=== PATIENT | male | born 1940 | race Caucasian/White ===

== ENCOUNTER 2022-05-13 17:38 | Inpatient (IN) | payer OTHER ==
[~2022-05-13] VITALS: Ht 160 cm; Wt 60.8 kg
[2022-05-13 17:44] VITALS: BP_SYST 107
[2022-05-13 18:30] LABS: BASOPHILS % (AUTO) 0.7 % (0.0-2.0); EOSINOPHILS # (AUTO) 0.1 K/uL (0.0-0.4); EOSINOPHILS % (AUTO) 2.3 % (0.0-4.0); HEMATOCRIT 34.2 % (36-54); LYMPHOCYTES # (AUTO) 1.2 K/uL (1.0-5.5); LYMPHOCYTES % (AUTO) 24.3 % (20.5-51.5); MEAN CORPUSCULAR HEMOGLOBIN 31 pg (27-31); MEAN CORPUSCULAR HGB CONC 35 % (32-36); MEAN CORPUSCULAR VOLUME 89 fL (79.0-98.0); MONOCYTES # (AUTO) 0.6 K/uL (0.0-1.0); MONOCYTES % (AUTO) 11.2 % (1.7-9.3); NEUTROPHILS # (AUTO) 3.1 K/uL (1.8-7.7); NEUTROPHILS % (AUTO) 61.5 % (40.0-70.0); PLATELET COUNT (AUTO) 277 K/uL (130-430); RED BLOOD CELL COUNT(AUTO) 3.84 MIL/uL (4.2-6.2); RED CELL DISTRIBUTION WIDTH 13.6 % (9.0-15.0); WHITE BLOOD COUNT (AUTO) 5.1 K/uL (4.8-10.8)
[2022-05-13 18:45] LABS: ANION GAP 9 (5-15); CALCIUM 8.7 mg/dL (8.4-11.0); CHLORIDE 92 mmol/L (98-107); CREATININE 0.88 mg/dL (0.55-1.30); GLUCOSE 79 mg/dL (70-99); UREA NITROGEN, BLOOD 14 mg/dL (8-21)
[2022-05-13 18:50] LABS: INR 1.1 (0.80-1.20); PROTHROMBIN TIME 11.6 SECS (9.5-12.5)
[2022-05-13 18:59] LABS: ALANINE AMINOTRANSFERASE 17 U/L (12-78); ALBUMIN 3.4 g/dL (3.4-4.8); ASPARTATE AMINOTRANSFERASE 20 U/L (10-37); FREE T4 (FREE THYROXINE) 1.2 ng/dL (0.6-1.6); TOTAL BILIRUBIN 0.9 mg/dL (0.0-1.0)
[2022-05-13] MEDS ORDERED: NACL 0.9% 1,000 ML IV ONE (19:30)
[2022-05-13 19:53] LABS: ACETONE, SERUM POSITIVE (NEGATIVE)
[2022-05-13 21:57] VITALS: BP_SYST 126
[2022-05-13] MEDS: D5NS 1,000 ML IV SCH (22:32)
[2022-05-14 08:00] VITALS: BP_SYST 133
[2022-05-14 09:27] LABS: BILIRUBIN,URINE NEGATIVE (NEGATIVE); BLOOD, URINE 3+ (NEGATIVE); CLARITY/URINE CLEAR (CLEAR); COLOR,URINE YELLOW (YELLOW); GLUCOSE,URINE NEGATIVE (NEGATIVE); KETONES,URINE 1+ (NEGATIVE); LEUKOCYTE ESTERASE ,URINE NEGATIVE (NEGATIVE); NITRITE, URINE NEGATIVE (NEGATIVE); PROTEIN URINE NEGATIVE (NEGATIVE)
[2022-05-14 09:44] LABS: BASOPHILS % (AUTO) 0.5 % (0.0-2.0); EOSINOPHILS # (AUTO) 0.1 K/uL (0.0-0.4); EOSINOPHILS % (AUTO) 2.2 % (0.0-4.0); HEMATOCRIT 34.8 % (36-54); LYMPHOCYTES % (AUTO) 17.6 % (20.5-51.5); MEAN CORPUSCULAR HEMOGLOBIN 31 pg (27-31); MEAN CORPUSCULAR HGB CONC 34 % (32-36); MEAN CORPUSCULAR VOLUME 89 fL (79.0-98.0); MONOCYTES # (AUTO) 0.5 K/uL (0.0-1.0); MONOCYTES % (AUTO) 9.6 % (1.7-9.3); NEUTROPHILS % (AUTO) 70.1 % (40.0-70.0); PLATELET COUNT (AUTO) 276 K/uL (130-430); RED BLOOD CELL COUNT(AUTO) 3.89 MIL/uL (4.2-6.2); RED CELL DISTRIBUTION WIDTH 13.8 % (9.0-15.0); WHITE BLOOD COUNT (AUTO) 5.7 K/uL (4.8-10.8)
[2022-05-14 09:45] LABS: ANION GAP 5 (5-15); CALCIUM 8.5 mg/dL (8.4-11.0); CHLORIDE 97 mmol/L (98-107); CREATININE 0.73 mg/dL (0.55-1.30); GLUCOSE 109 mg/dL (70-99); UREA NITROGEN, BLOOD 9 mg/dL (8-21)
[2022-05-14 09:54] LABS: ALANINE AMINOTRANSFERASE 14 U/L (12-78); ALBUMIN 3.1 g/dL (3.4-4.8); ASPARTATE AMINOTRANSFERASE 21 U/L (10-37); CHOLESTEROL 166 mg/dL (<200); HDL CHOLESTEROL 72 mg/dL (>45); PHOSPHORUS 3.6 mg/dL (2.7-4.5); TOTAL BILIRUBIN 0.8 mg/dL (0.0-1.0); TRIGLYCERIDES 67 mg/dL (30-150)
[2022-05-14 10:11] LABS: BACTERIA,URINE None Seen /HPF (None Seen); RBC,URINE 50-80 /HPF (0-3); WBC,URINE 0-3 /HPF (0-3)
[2022-05-14 12:00] VITALS: BP_SYST 131
[2022-05-14 15:58] LABS: ANION GAP 6 (5-15); CALCIUM 8.1 mg/dL (8.4-11.0); CHLORIDE 94 mmol/L (98-107); CREATININE 0.83 mg/dL (0.55-1.30); GLUCOSE 113 mg/dL (70-99); UREA NITROGEN, BLOOD 7 mg/dL (8-21)
[2022-05-14 16:00] VITALS: BP_SYST 131
[2022-05-14 20:00] VITALS: BP_SYST 110
[2022-05-14] MEDS: D5NS 1,000 ML IV SCH (22:28)
[2022-05-15 00:20] VITALS: BP_SYST 140
[2022-05-15 07:17] LABS: ANION GAP 5 (5-15); CALCIUM 8.4 mg/dL (8.4-11.0); CHLORIDE 95 mmol/L (98-107); CREATININE 0.76 mg/dL (0.55-1.30); GLUCOSE 108 mg/dL (70-99); UREA NITROGEN, BLOOD 6 mg/dL (8-21)
[2022-05-15] MEDS: D5NS 1,000 ML IV SCH ×2 (09:11→11:45)
[2022-05-15] MEDS ORDERED: SODIUM CHLORIDE 3% *HI-ALERT* 500 ML IV PRN (10:45)
[2022-05-15] MEDS ORDERED: SODIUM CHLORIDE 3% *HI-ALERT* 250 ML IV ONE (12:00)
[2022-05-15 13:01] VITALS: BP_SYST 139
[2022-05-15 17:30] VITALS: BP_SYST 129
[2022-05-15 20:00] VITALS: BP_SYST 13; BP_SYST 134
[2022-05-15] MEDS: FUROSEMIDE 20 MG/2 ML VIAL IVP SCH (23:08)
[2022-05-16] VITALS: BP_SYST 123
[2022-05-16] MEDS: D5NS 1,000 ML IV SCH ×3 (01:00→17:45)
[2022-05-16 07:17] LABS: BASOPHILS % (AUTO) 0.4 % (0.0-2.0); EOSINOPHILS # (AUTO) 0.2 K/uL (0.0-0.4); EOSINOPHILS % (AUTO) 3.7 % (0.0-4.0); HEMATOCRIT 35.6 % (36-54); HEMOGLOBIN 12.3 g/dL (14.0-18.0); LYMPHOCYTES # (AUTO) 1.3 K/uL (1.0-5.5); LYMPHOCYTES % (AUTO) 21.2 % (20.5-51.5); MEAN CORPUSCULAR HEMOGLOBIN 31 pg (27-31); MEAN CORPUSCULAR HGB CONC 34 % (32-36); MEAN CORPUSCULAR VOLUME 90 fL (79.0-98.0); MONOCYTES # (AUTO) 0.5 K/uL (0.0-1.0); MONOCYTES % (AUTO) 8.2 % (1.7-9.3); NEUTROPHILS # (AUTO) 3.9 K/uL (1.8-7.7); NEUTROPHILS % (AUTO) 66.5 % (40.0-70.0); PLATELET COUNT (AUTO) 275 K/uL (130-430); RED BLOOD CELL COUNT(AUTO) 3.97 MIL/uL (4.2-6.2); RED CELL DISTRIBUTION WIDTH 13.8 % (9.0-15.0); WHITE BLOOD COUNT (AUTO) 5.9 K/uL (4.8-10.8)
[2022-05-16 07:40] VITALS: BP_SYST 116
[2022-05-16 07:41] LABS: ANION GAP 7 (5-15); CALCIUM 8.6 mg/dL (8.4-11.0); CHLORIDE 95 mmol/L (98-107); CREATININE 0.78 mg/dL (0.55-1.30); GLUCOSE 96 mg/dL (70-99); UREA NITROGEN, BLOOD 5 mg/dL (8-21)
[2022-05-16] MEDS: FUROSEMIDE 20 MG/2 ML VIAL IVP SCH ×2 (11:49→22:52)
[2022-05-16] MEDS ORDERED: PANTOPRAZOLE SODIUM 40 MG TAB PO ONE (13:15)
[2022-05-16] MEDS ORDERED: MEGESTROL ACETATE 400 MG/10 ML UDC PO ONE (13:15)
[2022-05-16] MEDS ORDERED: POLYETHYLENE GLYCOL 3350, 17 GM/ POWD.PACK PO ONE (14:30)
[2022-05-16 14:46] LABS: ANION GAP 8 (5-15); CALCIUM 8.4 mg/dL (8.4-11.0); CHLORIDE 95 mmol/L (98-107); CREATININE 0.85 mg/dL (0.55-1.30); GLUCOSE 108 mg/dL (70-99); UREA NITROGEN, BLOOD 7 mg/dL (8-21)
[2022-05-16 16:12] VITALS: BP_SYST 138
[2022-05-16] MEDS: LEVOFLOXACIN 250 MG/D5W 50 ML IV SCH (18:42)
[2022-05-16 20:00] VITALS: BP_SYST 117
[2022-05-16] MEDS: MEGESTROL ACETATE 400 MG/10 ML UDC PO SCH (21:06)
[2022-05-17] VITALS: BP_SYST 93
[2022-05-17] MEDS: D5NS 1,000 ML IV SCH ×3 (03:57→21:41)
[2022-05-17 06:47] LABS: BASOPHILS % (AUTO) 0.5 % (0.0-2.0); EOSINOPHILS # (AUTO) 0.1 K/uL (0.0-0.4); HEMATOCRIT 32.6 % (36-54); HEMOGLOBIN 11.2 g/dL (14.0-18.0); LYMPHOCYTES # (AUTO) 1.6 K/uL (1.0-5.5); LYMPHOCYTES % (AUTO) 25.3 % (20.5-51.5); MEAN CORPUSCULAR HEMOGLOBIN 31 pg (27-31); MEAN CORPUSCULAR HGB CONC 34 % (32-36); MEAN CORPUSCULAR VOLUME 90 fL (79.0-98.0); MONOCYTES # (AUTO) 0.5 K/uL (0.0-1.0); MONOCYTES % (AUTO) 8.3 % (1.7-9.3); NEUTROPHILS # (AUTO) 4.1 K/uL (1.8-7.7); NEUTROPHILS % (AUTO) 63.9 % (40.0-70.0); PLATELET COUNT (AUTO) 266 K/uL (130-430); RED BLOOD CELL COUNT(AUTO) 3.63 MIL/uL (4.2-6.2); RED CELL DISTRIBUTION WIDTH 13.7 % (9.0-15.0); WHITE BLOOD COUNT (AUTO) 6.3 K/uL (4.8-10.8)
[2022-05-17 07:14] LABS: ANION GAP 6 (5-15); CALCIUM 8.3 mg/dL (8.4-11.0); CHLORIDE 97 mmol/L (98-107); CREATININE 0.81 mg/dL (0.55-1.30); GLUCOSE 105 mg/dL (70-99); UREA NITROGEN, BLOOD 7 mg/dL (8-21)
[2022-05-17 07:40] VITALS: BP_SYST 100
[2022-05-17] MEDS ORDERED: DIATR MEGLU/DIATRIZ SOD 30 ML SOLUTION PO ONE (08:25)
[2022-05-17] MEDS: FUROSEMIDE 20 MG/2 ML VIAL IVP SCH (08:29)
[2022-05-17 08:32] VITALS: BP_SYST 108
[2022-05-17] MEDS: PANTOPRAZOLE SODIUM 40 MG TAB PO SCH (08:40)
[2022-05-17] MEDS: MEGESTROL ACETATE 400 MG/10 ML UDC PO SCH ×2 (08:40→21:37)
[2022-05-17] MEDS ORDERED: POTASSIUM CHLORIDE 20 MEQ TAB.PRT.SR PO ONE (11:15)
[2022-05-17 11:32] LABS: BILIRUBIN,URINE NEGATIVE (NEGATIVE); BLOOD, URINE 2+ (NEGATIVE); CLARITY/URINE CLEAR (CLEAR); COLOR,URINE YELLOW (YELLOW); GLUCOSE,URINE NEGATIVE (NEGATIVE); KETONES,URINE NEGATIVE (NEGATIVE); LEUKOCYTE ESTERASE ,URINE NEGATIVE (NEGATIVE); NITRITE, URINE NEGATIVE (NEGATIVE); PH,URINE 6.5 (5.0-8.0); PROTEIN URINE NEGATIVE (NEGATIVE); UROBILINOGEN,URINE 0.2 (0.2-1.0)
[2022-05-17 11:40] VITALS: BP_SYST 106
[2022-05-17 12:06] LABS: BACTERIA,URINE RARE /HPF (None Seen); MUCUS,URINE 1+ /LPF (None Seen); WBC,URINE 0-3 /HPF (0-3)
[2022-05-17] MEDS ORDERED: FUROSEMIDE 20 MG/2 ML VIAL IVP ONE (12:30)
[2022-05-17 14:10] LABS: BASOPHILS % (AUTO) 0.5 % (0.0-2.0); EOSINOPHILS # (AUTO) 0.1 K/uL (0.0-0.4); EOSINOPHILS % (AUTO) 1.8 % (0.0-4.0); HEMATOCRIT 36.2 % (36-54); HEMOGLOBIN 12.3 g/dL (14.0-18.0); LYMPHOCYTES % (AUTO) 15.9 % (20.5-51.5); MEAN CORPUSCULAR HEMOGLOBIN 31 pg (27-31); MEAN CORPUSCULAR HGB CONC 34 % (32-36); MEAN CORPUSCULAR VOLUME 90 fL (79.0-98.0); MONOCYTES # (AUTO) 0.4 K/uL (0.0-1.0); MONOCYTES % (AUTO) 6.7 % (1.7-9.3); NEUTROPHILS # (AUTO) 4.8 K/uL (1.8-7.7); NEUTROPHILS % (AUTO) 75.1 % (40.0-70.0); PLATELET COUNT (AUTO) 278 K/uL (130-430); RED CELL DISTRIBUTION WIDTH 13.7 % (9.0-15.0); WHITE BLOOD COUNT (AUTO) 6.4 K/uL (4.8-10.8)
[2022-05-17] MEDS: LEVOFLOXACIN 250 MG/D5W 50 ML IV SCH (14:38)
[2022-05-17 16:31] VITALS: BP_SYST 127
[2022-05-17 20:00] VITALS: BP_SYST 93
[2022-05-18] VITALS: BP_SYST 104
[2022-05-18 07:40] VITALS: BP_SYST 116
[2022-05-18] MEDS ORDERED: FUROSEMIDE 20 MG/2 ML VIAL IVP SCH (09:00)
[2022-05-18] MEDS ORDERED: HYDROCORTISONE ACETATE 1 SUPP (ANUSOL HC) RC SCH (09:00)
[2022-05-18] MEDS: MEGESTROL ACETATE 400 MG/10 ML UDC PO SCH (09:06)
[2022-05-18] MEDS: PANTOPRAZOLE SODIUM 40 MG TAB PO SCH (09:06)
[2022-05-18] MEDS: D5NS 1,000 ML IV SCH (09:45)
[2022-05-18 11:40] VITALS: BP_SYST 115
[2022-05-18] MEDS ORDERED: FURO20TA4 PO (14:09)
[2022-05-18] MEDS ORDERED: MEGE400O4 PO (14:09)
[2022-05-18] MEDS ORDERED: ANURH RC (14:09)
[2022-05-18] MEDS: LEVOFLOXACIN 250 MG/D5W 50 ML IV SCH (14:19)
[2022-05-18 16:09] VITALS: BP_SYST 112
[2022-05-20 16:06] LABS: % FREE PSA 9.4 % (.); FREE PSA 0.17 ng/mL; PROSTATE SPECIFIC AG TOTAL 1.8 ng/mL (0.0-4.0)
== END 2022-05-18 17:45 | disposition home or self-care (01) | DRG 641 ==
LOC: SED 17:38 → STU 19:44
PROVIDERS: ADMIT Specialist; ATTEND Specialist
PROC: 0T9B70Z Drainage of Bladder with Drainage Device, Via Natural or Artificial Opening (ICD-10-PCS; principal; 2022-05-14)
DX: E87.1 Hypo-osmolality and hyponatremia (principal); C64.2 Malignant neoplasm of left kidney, except renal pelvis; E86.0 Dehydration; N31.2 Flaccid neuropathic bladder, not elsewhere classified; D64.9 Anemia, unspecified; Z20.822 Contact with and (suspected) exposure to COVID-19; Z85.528 Personal history of other malignant neoplasm of kidney; Z90.5 Acquired absence of kidney; R31.9 Hematuria, unspecified; N39.498 Other specified urinary incontinence
CPT/HCPCS: 36415; 70450-TC; 71045; 72110; 76376; 80048; 80053; 80061; 81000; 82009; 82550; 83605; 83735; 84100; 84153; 84439; 84443; 84484; 85025; 85610-TC; 85730-TC; 93005; 97110-GP; 97116-GP; 97530-GP; 99285; G0378; J1940; J1956; J3490; Q9964; Q9967

== ENCOUNTER 2022-05-21 14:33 | Inpatient (IN) | payer OTHER ==
[~2022-05-21] VITALS: Ht 160 cm; Wt 59.9 kg
[~2022-05-21 14:33] MED LIST: ANURH RC; FURO20TA4 PO; MEGE400O4 PO
[2022-05-21 14:48] VITALS: BP_SYST 153
[2022-05-21] MEDS ORDERED: NACL 0.9% 1,000 ML IV ONE (15:00)
--- NOTE | 2022-05-21 15:16 | NUR ---
XRAY AT BEDSIDE
--- NOTE | 2022-05-21 15:30 | NUR ---
PT PRESENTS TO ED WITH REPORT OF HEMATURIA AND DYSURIA X 3 DAYS. PT WAS DISCHARGED FROM [facility] 05/17 AND HAD F/C PLACED ON 05/16, ONCE PT WAS HOME, PAIN STARTED. YELLOW CLEAR URINE NOTED IN F/C DRAINAGE BAG. PT IS AWAKE A/O 4 AND VERBALLY RESPONSIVE. NO ACUTE DISTRESS NOTED. SPEAKS CLEAR AND FULL SENTENCES. IV INITIATED TO RIGHT AC, TOLERATED WELL, POSITIVE BLOOD RETURN. NO REDNESS OR SWELLING. OBTAINED LAB SPECIMENS FROM IV SITE. DAUGHTER AT BEDSIDE
[2022-05-21 15:40] LABS: BASOPHILS % (AUTO) 0.5 % (0.0-2.0); EOSINOPHILS # (AUTO) 0.1 K/uL (0.0-0.4); EOSINOPHILS % (AUTO) 1.9 % (0.0-4.0); HEMATOCRIT 33.9 % (36-54); HEMOGLOBIN 11.8 g/dL (14.0-18.0); LYMPHOCYTES # (AUTO) 1.2 K/uL (1.0-5.5); LYMPHOCYTES % (AUTO) 20.7 % (20.5-51.5); MEAN CORPUSCULAR HEMOGLOBIN 31 pg (27-31); MEAN CORPUSCULAR HGB CONC 35 % (32-36); MEAN CORPUSCULAR VOLUME 90 fL (79.0-98.0); MONOCYTES # (AUTO) 0.5 K/uL (0.0-1.0); NEUTROPHILS # (AUTO) 3.9 K/uL (1.8-7.7); NEUTROPHILS % (AUTO) 68.9 % (40.0-70.0); PLATELET COUNT (AUTO) 273 K/uL (130-430); RED BLOOD CELL COUNT(AUTO) 3.77 MIL/uL (4.2-6.2); WHITE BLOOD COUNT (AUTO) 5.7 K/uL (4.8-10.8)
[2022-05-21 15:50] LABS: ANION GAP 7 (5-15); CHLORIDE 94 mmol/L (98-107); GLUCOSE 95 mg/dL (70-99); UREA NITROGEN, BLOOD 17 mg/dL (8-21)
[2022-05-21 15:51] LABS: INR 1.1 (0.80-1.20); PROTHROMBIN TIME 11.4 SECS (9.5-12.5)
[2022-05-21 15:57] LABS: ALANINE AMINOTRANSFERASE 16 U/L (12-78); ALBUMIN 3.3 g/dL (3.4-4.8); ASPARTATE AMINOTRANSFERASE 22 U/L (10-37); TOTAL BILIRUBIN 0.7 mg/dL (0.0-1.0)
[2022-05-21] MEDS ORDERED: FURO-150 PO (16:16)
[2022-05-21 16:21] LABS: CLARITY/URINE SLIGHTLY CLOUDY (CLEAR); COLOR,URINE YELLOW (YELLOW); GLUCOSE,URINE 0 (NEGATIVE); KETONES,URINE TRACE (NEGATIVE); PH,URINE 6.5 (5.0-8.0); PROTEIN URINE 2+ (NEGATIVE)
[2022-05-21 16:22] LABS: BILIRUBIN,URINE NEGATIVE (NEGATIVE); BLOOD, URINE 3+ (NEGATIVE); LEUKOCYTE ESTERASE ,URINE 1+ (NEGATIVE); NITRITE, URINE NEGATIVE (NEGATIVE)
[2022-05-21 16:30] LABS: RBC,URINE >100 /HPF (0-3)
[2022-05-21 16:31] LABS: BACTERIA,URINE FEW /HPF (None Seen); MUCUS,URINE 3+ /LPF (None Seen)
--- NOTE | 2022-05-21 16:41 | NUR ---
IRRIGATED F/C PER SAMSON ORDERS WITH 120 ML NS
--- NOTE | 2022-05-21 16:42 | NUR ---
Admit bed requested Patient will be admitted to care of Dr Gordon. Admitted to Medsurg unit. Diagnosis Hyponatremia Inpatient (Yes or No) Yes Observation (Yes or No) No Orientation concerns or request close to nursing station (Yes or No) No Covid Status pending On vent or bipap N/A Isolation requirements N/A Needs a sitter N/A From Home (Yes or if No enter name of facility) Yes Requires Dialysis (Yes or No) No Med Rec Completed (Yes of No) Yes
[2022-05-21] MEDS ORDERED: cefTRIAXone 1 GM in D5W 50 ML IV ONE (16:45)
[2022-05-21] MEDS ORDERED: cefTRIAXone 1 GM VIAL ONE (16:45)
--- NOTE | 2022-05-21 17:00 | NUR ---
PT AWAKE IN [facility], NO ACUTE DISTRESS NOTED. BREATHING EVEN AND UNLABORED. DENIES ANY NEEDS AT THIS TIME. NO CHANGES NOTED. SAFETY MEASURES IN PLACE.
[2022-05-21] MEDS: NACL 0.9% 1,000 ML IV SCH (17:46)
--- NOTE | 2022-05-21 18:36 | NUR ---
PT AWAKE, A/O X4 AND VERBALLY RESPONSIVE. NO ACUTE DISTRESS NOTED. BREATHING EVEN AND UNLABORED. PT DENIES ANY PAIN OR DISCOMFORT AT THIS TIME. F/C INTACT, CLEAR AND YELLOW URINE DRAINING INTO DRAINAGE BAG. SAFETY MEASURS IN PLACE. Addendum: 05/21/22 at 1837 by [email or web address] NO CHANGES NOTED AT THIS TIME
--- NOTE | 2022-05-21 19:21 | NUR ---
REPORT GIVEN TO DAYNE SUAZO TO CONTINUE CARE OF PT
--- NOTE | 2022-05-22 00:28 | NUR ---
Patient will be admitted to care of Dr. Gordon. Admitted to MS unit. Will go to room 107B. Belongings list completed. Complete and up to date summary report printed. SBAR report to be given at bedside to GABRIELE Kim with opportunity for questions.
--- NOTE | 2022-05-22 00:35 | NUR ---
ADMISSION NOTE Received patient from ER via gurney. Patient admitted with diagnosis of Hyponatremia . Patient is awake, alert, oriented X 4. Patient oriented to hospital room, call light, toileting, pain management and safety-teach back done. Patient informed that I will be his nurse and that their room number is 107B. Personal belongings checked and Belongings List documented. Call light within reach.
[2022-05-22 00:38] VITALS: BP_SYST 119
--- NOTE | 2022-05-22 04:18 | NUR ---
ROUNDS PATIENT ASLEEP, VITALS STABLE, NO SIGNS OF ANY PAIN AND DISCOMFORT NOTED. WILL CONTINUE TO MONITOR.
[2022-05-22] MEDS ORDERED: cefTRIAXone 1 GM VIAL IM SCH (09:00)
[2022-05-22 09:01] VITALS: BP_SYST 144
[2022-05-22] MEDS: cefTRIAXone 1 GM in D5W 50 ML IV SCH (12:15)
[2022-05-22 12:30] VITALS: BP_SYST 128
[2022-05-22] MEDS: NACL 0.9% 1,000 ML IV SCH (14:35)
[2022-05-22 15:50] VITALS: BP_SYST 123
--- NOTE | 2022-05-22 17:58 | NUR ---
CONSULTATION: REASON FOR CONSULT: ONC F/U H/O RCC WITH POSS METS CONSULTING PHYSICIAN: DIEGO ORDERED BY: DANE SPOKE WITH LORENZO [phone]
[2022-05-22 20:00] VITALS: BP_SYST 133
[2022-05-23] MEDS ORDERED: ANUSOL 1 EA SUPP.RECT (PREPARATION H) RC PRN (00:30)
[2022-05-23] MEDS ORDERED: PHENYLEPH/MINERAL OIL/PETROLAT 57 GM OINT.APPL TP PRN (00:30)
[2022-05-23] MEDS ORDERED: ACETAMINOPHEN 325 MG TABLET PO PRN (00:30)
[2022-05-23 00:45] VITALS: BP_SYST 132
[2022-05-23] MEDS: ACETAMINOPHEN 500 MG TABLET PO PRN ×2 (00:57→20:58)
[2022-05-23 05:15] LABS: BASOPHILS % (AUTO) 0.6 % (0.0-2.0); EOSINOPHILS # (AUTO) 0.2 K/uL (0.0-0.4); EOSINOPHILS % (AUTO) 2.4 % (0.0-4.0); HEMATOCRIT 32.2 % (36-54); HEMOGLOBIN 11.1 g/dL (14.0-18.0); LYMPHOCYTES # (AUTO) 1.6 K/uL (1.0-5.5); MEAN CORPUSCULAR HEMOGLOBIN 31 pg (27-31); MEAN CORPUSCULAR HGB CONC 34 % (32-36); MEAN CORPUSCULAR VOLUME 90 fL (79.0-98.0); MONOCYTES # (AUTO) 0.6 K/uL (0.0-1.0); MONOCYTES % (AUTO) 9.4 % (1.7-9.3); NEUTROPHILS # (AUTO) 4.1 K/uL (1.8-7.7); NEUTROPHILS % (AUTO) 62.6 % (40.0-70.0); PLATELET COUNT (AUTO) 255 K/uL (130-430); RED BLOOD CELL COUNT(AUTO) 3.56 MIL/uL (4.2-6.2); RED CELL DISTRIBUTION WIDTH 13.5 % (9.0-15.0); WHITE BLOOD COUNT (AUTO) 6.5 K/uL (4.8-10.8)
[2022-05-23] MEDS ORDERED: IPRATROPIUM/ALBUTEROL SULFATE 3 ML AMPUL.NEB (DUONEB) INH PRN (05:30)
[2022-05-23 06:18] VITALS: BP_SYST 132
[2022-05-23 06:23] LABS: ALANINE AMINOTRANSFERASE 8 U/L (12-78); ALBUMIN 2.8 g/dL (3.4-4.8); ANION GAP 10 (5-15); ASPARTATE AMINOTRANSFERASE 18 U/L (10-37); CALCIUM 7.9 mg/dL (8.4-11.0); CHLORIDE 95 mmol/L (98-107); CREATININE 0.84 mg/dL (0.55-1.30); GLUCOSE 90 mg/dL (70-99); TOTAL BILIRUBIN 0.4 mg/dL (0.0-1.0); UREA NITROGEN, BLOOD 10 mg/dL (8-21)
[2022-05-23 06:24] LABS: FREE T4 (FREE THYROXINE) 0.9 ng/dL (0.6-1.6); PHOSPHORUS 3.3 mg/dL (2.7-4.5); THYROID STIMULATING HORMONE 3.65 uIu/mL (0.34-4.82)
--- NOTE | 2022-05-23 06:26 | NUR ---
SHIFT NOTES: Patient was received from AM shift during change of shift. Patient is AA&Ox4 able to make needs known, with call light within reach, denies any pain or distress at this time. Chest rise is even and unlabored on RA. PIV noted at RAC with NS running at 50ml/hr as ordered. FC cath noted, hanging by gravity, draining yellow urine. Patient is noted stable at this time and safety measures are in place as per protocol. Will monitor. 0000: Dr. VELA was called and new orders were received. Patient reported a GALINDO and discomfort due hemorrhoids. New orders were received for PRN pain relief and Hemorrhoid relief. Orders noted and carried out. 0200: Patient reports pain relief. UA order noted. 0500: UA collected. Patient is noted to be resting no s/s of distress at this time.
[2022-05-23 08:21] VITALS: BP_SYST 133
[2022-05-23] MEDS: NACL 0.9% 1,000 ML IV SCH (09:12)
[2022-05-23] MEDS: HEPARIN SODIUM,PORCINE 5,000 UNITS/ML VIAL SUBCUT SCH (09:13)
[2022-05-23 11:27] VITALS: BP_SYST 93
[2022-05-23] MEDS: cefTRIAXone 1 GM in D5W 50 ML IV SCH (11:58)
[2022-05-23 15:30] VITALS: BP_SYST 121
[2022-05-23] MEDS ORDERED: COMMUNICATION ORDER XX ONE (17:00)
[2022-05-23] MEDS ORDERED: HYDROCORTISONE ACETATE 1 SUPP (ANUSOL HC) RC ONE (17:30)
[2022-05-23] MEDS ORDERED: MEGESTROL ACETATE 400 MG/10 ML UDC PO ONE (17:30)
[2022-05-23] MEDS ORDERED: FUROSEMIDE 20 MG TABLET PO ONE (17:30)
[2022-05-23 20:00] VITALS: BP_SYST 113
[2022-05-23] MEDS: MEGESTROL ACETATE 400 MG/10 ML UDC PO SCH (20:57)
[2022-05-23] MEDS: SODIUM CHLORIDE 500 MG TABLET PO SCH (20:57)
[2022-05-23] MEDS: TEMAZEPAM 7.5 MG CAPSULE PO PRN (20:58)
[2022-05-24 00:20] VITALS: BP_SYST 113
[2022-05-24] MEDS: NACL 0.9% 1,000 ML IV SCH (05:00)
[2022-05-24 05:48] LABS: BASOPHILS % (AUTO) 0.8 % (0.0-2.0); EOSINOPHILS # (AUTO) 0.1 K/uL (0.0-0.4); EOSINOPHILS % (AUTO) 1.7 % (0.0-4.0); HEMATOCRIT 33.3 % (36-54); HEMOGLOBIN 11.3 g/dL (14.0-18.0); LYMPHOCYTES # (AUTO) 1.2 K/uL (1.0-5.5); LYMPHOCYTES % (AUTO) 28.2 % (20.5-51.5); MEAN CORPUSCULAR HEMOGLOBIN 31 pg (27-31); MEAN CORPUSCULAR HGB CONC 34 % (32-36); MEAN CORPUSCULAR VOLUME 90 fL (79.0-98.0); MONOCYTES # (AUTO) 0.4 K/uL (0.0-1.0); MONOCYTES % (AUTO) 9.2 % (1.7-9.3); NEUTROPHILS # (AUTO) 2.6 K/uL (1.8-7.7); NEUTROPHILS % (AUTO) 60.1 % (40.0-70.0); PLATELET COUNT (AUTO) 255 K/uL (130-430); RED BLOOD CELL COUNT(AUTO) 3.69 MIL/uL (4.2-6.2); RED CELL DISTRIBUTION WIDTH 13.4 % (9.0-15.0); WHITE BLOOD COUNT (AUTO) 4.3 K/uL (4.8-10.8)
[2022-05-24 06:44] LABS: ALANINE AMINOTRANSFERASE 12 U/L (12-78); ALBUMIN 2.8 g/dL (3.4-4.8); ANION GAP 8 (5-15); ASPARTATE AMINOTRANSFERASE 18 U/L (10-37); CHLORIDE 97 mmol/L (98-107); CREATININE 0.83 mg/dL (0.55-1.30); FREE T4 (FREE THYROXINE) 0.9 ng/dL (0.6-1.6); GLUCOSE 97 mg/dL (70-99); THYROID STIMULATING HORMONE 3.97 uIu/mL (0.34-4.82); TOTAL BILIRUBIN 0.3 mg/dL (0.0-1.0); UREA NITROGEN, BLOOD 9 mg/dL (8-21)
--- NOTE | 2022-05-24 07:30 | NUR ---
MORNING ROUNDS: PATIENT AWAKE DURING ROUNDS. IV FLUIDS RUNNING AT RIGHT AC INTACT. CALL LIGHT WITH IN REACH. BED LOCKED AT LOWEST POSITION. NO DISTRESS. MAINTAINED NPO ORDERED FOR BIOPSY.
[2022-05-24 08:00] VITALS: BP_SYST 126
--- NOTE | 2022-05-24 10:50 | NUR ---
Construction Economist: Spoke with Komal ,Us guided Liver biopsy not able to do it per radiologist due to lesions too deep. Rn will paged Wind Turbine Mechanical Engineer.
--- NOTE | 2022-05-24 10:53 | NUR ---
Hematology Paged: Called Dr. Smith's exchange and left message c/o Casi.
[2022-05-24 11:07] LABS: CORTISOL (SERUM) 3.4 ug/dL (6.2-19.4)
[2022-05-24] MEDS ORDERED: fentaNYL CITRATE/PF 100 MCG/2 ML AMP ONE (11:42)
[2022-05-24] MEDS ORDERED: MIDAZOLAM HCL 5 MG/5 ML VIAL ONE (11:42)
--- NOTE | 2022-05-24 11:45 | NUR ---
pawel/hospitalist: Dr Arriaza vocational rehab consultant for Dr Gordon spoke with Dr Smith regarding biopsy can not be done per radiologist.
[2022-05-24 12:00] VITALS: BP_SYST 145
[2022-05-24] MEDS: MEGESTROL ACETATE 400 MG/10 ML UDC PO SCH ×2 (12:04→21:32)
[2022-05-24] MEDS: HYDROCORTISONE ACETATE 1 SUPP (ANUSOL HC) RC SCH (12:04)
[2022-05-24] MEDS: HEPARIN SODIUM,PORCINE 5,000 UNITS/ML VIAL SUBCUT SCH (12:06)
[2022-05-24] MEDS: SODIUM CHLORIDE 500 MG TABLET PO SCH ×3 (12:08→21:30)
[2022-05-24] MEDS: FUROSEMIDE 20 MG TABLET PO SCH (12:09)
--- NOTE | 2022-05-24 15:39 | NUR ---
Dietitian Recommendations * Continue regular diet * Continue megace * Kitchen- send coffee in AM and juice in PM GS, MPH, RD Please refer to RD Assessment for further details. Thanks! Addendum: 05/24/22 at [address] Amended: Links added.
[2022-05-24 16:00] VITALS: BP_SYST 126
--- NOTE | 2022-05-24 19:25 | NUR ---
End of shift: Report given to night nurse.Patient in stable condition.
[2022-05-24 20:00] VITALS: BP_SYST 134
[2022-05-24] MEDS: TEMAZEPAM 7.5 MG CAPSULE PO PRN (21:31)
[2022-05-25 00:15] VITALS: BP_SYST 128
--- NOTE | 2022-05-25 08:02 | NUR ---
PHYSICAL THERAPY CO-SIGN The Physical Therapy Progress Notes documented by Platform Power Technician have been reviewed. Reviewed/Co-Signed by: Thierry Godoy Documentation Done by:CARON BRIONES Addendum: 05/25/22 at 0802 by Thierry Godoy PT Amended: Links added.
[2022-05-25] MEDS: NACL 0.9% 1,000 ML IV SCH (09:00)
[2022-05-25 09:24] VITALS: BP_SYST 111
[2022-05-25 09:30] VITALS: BP_SYST 111
[2022-05-25] MEDS: MEGESTROL ACETATE 400 MG/10 ML UDC PO SCH (09:33)
[2022-05-25] MEDS: SODIUM CHLORIDE 500 MG TABLET PO SCH ×2 (09:34→15:41)
[2022-05-25] MEDS: HEPARIN SODIUM,PORCINE 5,000 UNITS/ML VIAL SUBCUT SCH (09:36)
[2022-05-25] MEDS: FUROSEMIDE 20 MG TABLET PO SCH (09:40)
[2022-05-25] MEDS: HYDROCORTISONE ACETATE 1 SUPP (ANUSOL HC) RC SCH (11:15)
[2022-05-25 11:29] VITALS: BP_SYST 117
--- NOTE | 2022-05-25 15:20 | NUR ---
PHYSICAL THERAPY CO-SIGN The Physical Therapy Progress Notes documented by Hose Tender have been reviewed. Reviewed/Co-Signed by: Thierry Godoy Documentation Done by:CARON BRIONES Addendum: 05/25/22 at 1520 by Thierry Godoy PT Amended: Links added.
[2022-05-25 16:15] VITALS: BP_SYST 94
[2022-05-25 18:19] VITALS: BP_SYST 94
--- NOTE | 2022-05-25 19:29 | NUR ---
Pt stable, vitals signs in normal limits. Pt lying in bed comfortable awaiting discharge to [facility] via transport [facility]. Pt has FC intact and IVF running on [id number]. IV should be removed prior to discharge. Pt endorsed to GABRIELE Richards for continuity of care and discharge.
--- NOTE | 2022-05-25 20:52 | NUR ---
Pt RFA IV removed. Hemostasis acheived. Pt identified belongings and belonging are with him on the stretcher to go to long-term. Report given to medical transportation. Pt has Dalyin (granddaughter) with him at bedside aware of transfer. Pt left in medical transportation vehicle. Addendum: 05/25/22 at 2104 by [employer], GABRIELE RN Pt discharge teaching done. Pt education packet provided for pt.
== END 2022-05-25 20:30 | DRG 644 ==
LOC: SED 14:33 → SMU 16:39
PROVIDERS: ADMIT Specialist; ATTEND Specialist
DX: E22.2 Syndrome of inappropriate secretion of antidiuretic hormone (principal); C64.2 Malignant neoplasm of left kidney, except renal pelvis; C77.9 Secondary and unspecified malignant neoplasm of lymph node, unspecified; N39.0 Urinary tract infection, site not specified; C78.7 Secondary malignant neoplasm of liver and intrahepatic bile duct; J44.9 Chronic obstructive pulmonary disease, unspecified; R31.9 Hematuria, unspecified; Z20.822 Contact with and (suspected) exposure to COVID-19
CPT/HCPCS: 36415; 71045; 80053; 81000; 82533; 83615; 83735; 83880; 83930; 83935; 84100; 84302; 84439; 84443; 84484; 85025; 85610-TC; 85730-TC; 87081; 87086; 93005; 96361; 96365; 97110-GP; 97116-GP; 97163-GP; 97530-GP; 99285; J0696; J1644; J2250; J3010; J7060